=== PATIENT | male | born 2000 | race Caucasian/White ===

== ENCOUNTER 2018-11-15 10:43 | Emergency (ER) | payer OTHER ==
[2018-11-15 10:51] VITALS: BP 139/66
[2018-11-15] MEDS ORDERED: Ondansetron ODT TAB* 4 MG PO ONE (11:36)
[2018-11-15] MEDS ORDERED: NS 0.9% 1000 ML* 1,000 ML IV ONE (11:36)
--- NOTE | 2018-11-15 11:45 | ED ---
Abdominal Pain/Male - HPI Summary HPI Summary: Patient is a 18 y/o M presenting to ED with complaints of abdominal pain, N/V. Provider in to see patient at 1110 in waiting room. Upon evaluation, patient is hunched over, hiccuping and retching. He claims that he came to ED to be taken to [facility] and states that he does not want to be seen here at [facility] as [facility] does not take his insurance. Patient was reassured that all patients and all insurances are accepted. On triage, it is noted that patient was seen at [facility] 2 weeks ago for similar complaints and there was nothing found to be wrong with the patient. Triage nurse Alessandro reports that patient was advised to stop smoking marijuana and drinking alcohol. However, patient admits to drinking alcohol and smoking marijuana last night. On triage, pain is rated 10/10. Home medications and allergies are reviewed. Allergies Allergy/AdvReac Type Severity Reaction Status Date / Time No Known Allergies Allergy Verified 11/15/18 10:51 - History of Current Complaint Chief Complaint: EDAbdPain Stated Complaint: VOMITING Hx Obtained From: Patient, Medical Records, Other: - nurse Alessandro Onset/Duration: Still Present Timing: Constant Severity Currently: Severe - 10/10 Pain Intensity: 10 Pain Scale Used: 0-10 Numeric - 10/10 Aggravating Factor(s): Nothing Alleviating Factor(s): Nothing Associated Signs And Symptoms: Positive: Nausea, Vomiting - Allergies/Home Medications Allergies/Adverse Reactions: Allergies Allergy/AdvReac Type Severity Reaction Status Date / Time No Known Allergies Allergy Verified 11/15/18 10:51 PMH/Surg Hx/FS Hx/Imm Hx Sensory History: Denies: Hx Legally Blind, Hx Deafness Opthamlomology History: Denies: Hx Legally Blind EENT History: Denies: Hx Deafness Infectious Disease History: No Infectious Disease History: Denies: Traveled Outside the [place] in Last 30 Days - Family History Known Family History: Positive: Unknown - patient left AMA before gathering - Social History Substance Use Type: Reports: Marijuana - Additional Comments History Additional Comments: patient left AMA before completing Hx Review of Systems Negative: Fever - on vitals, temp is 97.8 F Positive: Abdominal Pain, Vomiting, Nausea All Other Systems Reviewed And Are Negative: Yes Physical Exam - Summary Physical Exam Summary: Appearance: Ill-appearing, moderate pain distress, well-nourished, hunching over , retching, hiccuping Skin: Warm, color reflects adequate perfusion, dry Head: Normal Head/Face inspection, atraumatic Eyes: Conjunctiva clear ENT: Normal inspection Neck: Supple, no nodes, no JVD Respiratory: Lungs clear, normal breath sounds, no respiratory distress Cardio: RRR, No murmur, pulses normal, brisk capillary refill Abdomen: Soft, nontender Bowel sounds: Present Musculoskeletal: Strength Intact/ROM intact, no calf tenderness, no edema. Psychological: Normal Neuro: Alert, muscle tone normal, no focal deficit Triage Information Reviewed: Yes Vital Signs On Initial Exam: Initial Vitals Temp Pulse Resp BP Pulse Ox 97.8 F 88 20 139/66 100 11/15/18 10:47 11/15/18 10:47 11/15/18 10:47 11/15/18 10:47 11/15/18 10:47 Vital Signs Reviewed: Yes Diagnostics - Vital Signs Vital Signs Temp Pulse Resp BP Pulse Ox 11/15/18 10:47 97.8 F 88 20 139/66 100 - Laboratory Lab Statement: Any lab studies that have been ordered have been reviewed, and results considered in the medical decision making process. Re-Evaluation - Re-Evaluation First Eval Re-Evaluation Time: 11:56 Comment: Patient has declined zofran, states that he is going to leave to nurse Francois. This was advised against. Provider came to discuss the possible risks of leaving against medical advice. However, patient's parents had picked up patient at this point. Abdominal Pain Fem Course/Dx - Course Course Of Treatment: Patient is a 18 y/o M presenting to ED with complaints of abdominal pain, N/V. Provider in to see patient at 1110 in waiting room. Upon evaluation, patient is hunched over, hiccuping and retching. He claims that he came to ED to be taken to [facility] and states that he does not want to be seen here at [facility] as [facility] does not take his insurance. Patient was reassured that all patients and all insurances are accepted. On triage, it is noted that patient was seen at [facility] 2 weeks ago for similar complaints and there was nothing found to be wrong with the patient. Triage nurse Alessandro reports that patient was advised to stop smoking marijuana and drinking alcohol. However, patient admits to drinking alcohol and smoking marijuana last night. On physical exam, patient is noted to be ill-appearing, hunched over, hiccuping, in moderate pain distress, and retching. Fluids and Zofran ordered. Patient will be brought back when room is available. 1156 - In waiting room, patient had declined zofran, stated that he is going to leave to nurse Alessandro. This was advised against. Provider came to discuss the possible risks of leaving against medical advice. However, patient's parents had picked up patient at this point. Dx of vomiting, left AMA. - Diagnoses Provider Diagnoses: Vomiting, Left against medical advice Discharge - Sign-Out/Discharge Documenting (check all that apply): Patient Departure - LEFT AMA - Discharge Plan Condition: Good Disposition: AGAINST MEDICAL ADVICE Referrals: Sharad Dey MD [Primary Care Provider] - - Attestation Statements Document Initiated by Scribe: Yes Documenting Scribe: YUE TREADWELL Provider For Whom Scribe is Documenting (Include Credential): MATHEW TURNER MD Scribe Attestation: YUE Romero , scribed for MATHEW TURNER MD on 11/15/18 at 1550.
== END 2018-11-15 12:01 | disposition left against medical advice (07) ==
LOC: ED 10:43
DX: R11.2 Nausea with vomiting, unspecified (principal); R10.9 Unspecified abdominal pain
CPT/HCPCS: 99282